=== PATIENT | female | born 1995 | race Caucasian/White ===

== ENCOUNTER 2016-11-13 14:05 | Emergency (ER) | payer OTHER ==
[2016-11-13 15:58] LABS: HCG,QUALITATIVE URINE NEGATIVE
[2016-11-13] MEDS ORDERED: IBUPROFEN 600 MG TABLET ONE (16:06)
[2016-11-13] MEDS ORDERED: DIAZEPAM 5 MG TABLET ONE (16:06)
== END 2016-11-13 16:15 | disposition home or self-care (01) ==
LOC: ED 14:05
DX: Z04.1 Encounter for examination and observation following transport accident (principal); V43.52XA Car driver injured in collision with other type car in traffic accident, initial encounter; Y92.410 Unspecified street and highway as the place of occurrence of the external cause
CPT/HCPCS: 81025; 99283 ×2; A9270 ×2